=== PATIENT | female | born 1975 | race Two or more races ===

== ENCOUNTER 2019-08-13 10:24 | Emergency (ER) | payer SELFPAY ==
[~2019-08-13] VITALS: Ht 162.6 cm; Wt 88.5 kg
[2019-08-13 11:12] VITALS: BP 140/85
[2019-08-13] MEDS ORDERED: LEVO200T PO (11:48)
--- NOTE | 2019-08-13 11:49 | PHYS DOC ---
Past Medical History Past Medical History: Other Additional Past Medical Histor: THYROID CANCER Additional Past Surgical Histo: THYROIDECTOMY Alcohol Use: None Drug Use: None Adult General Chief Complaint Chief Complaint: MEDICATION REFILL [facility] HPI Patient is a 44 year old female that presents to the ER for medication refill. The patient states that she has been out of her levothyroxine. The patient states she recently moved to [place] and thus does not a primary care doctor this time. The patient states she's been calling around and can get in in 2 weeks however she needs her medicine before then she says. She states that she's been on 200 �g of Synthroid for last 5 years. Review of Systems Review of Systems Constitutional: Denies fever or chills [] Eyes: Denies change in visual acuity, redness, or eye pain [] HENT: Denies nasal congestion or sore throat [] Respiratory: Denies cough or shortness of breath [] Cardiovascular: No additional information not addressed in HPI [] GI: Denies abdominal pain, nausea, vomiting, bloody stools or diarrhea [] : Denies dysuria or hematuria [] Musculoskeletal: Denies back pain or joint pain [] Integument: Denies rash or skin lesions [] Neurologic: Denies headache, focal weakness or sensory changes [] Endocrine: Denies polyuria or polydipsia [] Complete systems were reviewed and found to be within normal limits, except as documented in this note. Allergies Allergies Allergies Coded Allergies Type Severity Reaction Last Updated Verified No Known Drug Allergies 08/13/19 No Physical Exam Physical Exam Constitutional: Well developed, well nourished, no acute distress, non-toxic appearance. [] HENT: Normocephalic, atraumatic, bilateral external ears normal, oropharynx moist, no oral exudates, nose normal. [] Eyes: PERRLA, EOMI, conjunctiva normal, no discharge. [] Neck: Normal range of motion, no tenderness, supple, no stridor. [] Skin: Warm, dry, no erythema, no rash. [] Back: No tenderness, no CVA tenderness. [] Extremities: No tenderness, no cyanosis, no clubbing, ROM intact, no edema. [] Neurologic: Alert and oriented X 3, normal motor function, normal sensory function, no focal deficits noted. [] Psychologic: Affect normal, judgement normal, mood normal. [] Current Patient Data Vital Signs Vital Signs Date Time Temp Pulse Resp B/P (MAP) Pulse Ox O2 Delivery O2 Flow Rate FiO2 08/13/19 11:12 97.2 72 14 140/85 (103) 99 Room Air 97.2 EKG EKG [] Radiology/Procedures Radiology/Procedures [] Course & Med Decision Making Course & Med Decision Making Pertinent Labs and Imaging studies reviewed. (See chart for details) Discussed with patient the importance of following up with a primary care provider in order to have TSH rechecked. Will give 30 day supply. Dragon Disclaimer Dragon Disclaimer This electronic medical record was generated, in whole or in part, using a voice recognition dictation system. Departure Departure Impression: Primary Impression: Medication refill Disposition: HOME, SELF-CARE Condition: STABLE Referrals: NO PCP (PCP) Patient Instructions: Medication Refill, Emergency Department Additional Instructions: Thank you for visiting [facility]. We appreciate you trusting us with your care. If any additional problems come up don't hesitate to return to visit us. Please follow up with your primary care provider so they can plan additional care if needed and know about the problem that you had. If symptoms worsen come back to the Emergency Department. Any concerning symptoms that start such as chest pain, shortness of air, weakness or numbness on one side of the body, running high fevers or any other concerning symptoms return to the ER. Please obtain a primary care doctor. Scripts Levothyroxine Sodium (SYNTHROID) 200 Mcg Tablet 1 TAB PO DAILY, #30 TAB 0 Refills Prov: JAMEEL HUERTA APRN 08/13/19 JAMEEL HUERTA APRN Aug 13, 2019 11:49
== END 2019-08-13 12:28 | disposition home or self-care (01) ==
LOC: ER 10:24
DX: Z76.0 Encounter for issue of repeat prescription (principal); Z90.89 Acquired absence of other organs
CPT/HCPCS: 99283